=== PATIENT | male | born 1960 | race Caucasian/White ===

== ENCOUNTER → 2018-11-27 | Outpatient (CLI) | payer BC ==
--- NOTE | 2018-11-27 09:47 | XR ---
EXAMINATION TYPE: XR shoulder complete RT DATE OF EXAM: 11/27/2018 CLINICAL HISTORY: Anterior superior shoulder pain for 3 to 4 weeks with no known injury TECHNIQUE: Three views of the right shoulder are obtained. COMPARISON: None. FINDINGS: There is no acute fracture/dislocation evident in the right shoulder. The acromioclavicul ar and glenohumeral joint spaces appear aligned however there is mild acromioclavicular arthropathy n oted with small marginal osteophytes The visualized ribs are intact and unremarkable. IMPRESSION: There is no acute fracture or dislocation in the right shoulder. Mild right acromioclavi cular arthropathy.
== END | disposition home or self-care (01) ==
LOC: RADXRYALE 09:11
PROVIDERS: ATTEND Physician Assistant Medical
DX: M19.011 Primary osteoarthritis, right shoulder (principal)

== ENCOUNTER 2019-10-08 18:25 | Inpatient (IN) | payer BC ==
[2019-10-08] MEDS ORDERED: NITROGLYCERIN OINT 1 INCH/GM PACKET TOPICAL STA (18:42)
--- NOTE | 2019-10-08 18:45 | ED ---
General Adult HPI - General Chief complaint: Chest Pain Stated complaint: Chest Pressure Time Seen by Provider: 10/08/19 18:30 Source: patient, RN notes reviewed, old records reviewed Limitations: no limitations - History of Present Illness Initial comments: This is a 59-year-old male who presents emergency Department with a past medical history significant for hypertension high cholesterol and a family history of heart disease in his father who is 51 years first heart attack. Patient comes in today because it 5 minutes of chest pressure in the center of his chest which was pretty significant according to him and he became very diaphoretic to the point where he sweated through his shirt. Patient states that about 5 minutes the symptoms resolved. Patient denies any radiation of the pain. Patient denies any significant shortness of breath. Patient denies any nausea. Patient states she is currently pain-free. Patient denies any recent fever chills or cough. Patient states he wasn't working outside. Patient denies any abdominal pain patient denies any vomiting or diarrhea. Patient denies any lightheadedness or dizziness - Related Data Home Medications Medication Instructions Recorded Confirmed Simvastatin [Zocor] 40 mg PO HS 06/16/15 06/16/15 lisinopriL [Zestril] 2.5 mg PO HS 06/16/15 06/16/15 Allergies Allergy/AdvReac Type Severity Reaction Status Date / Time No Known Allergies Allergy Verified 06/16/15 08:26 Review of Systems ROS Statement: Those systems with pertinent positive or pertinent negative responses have been documented in the HPI. ROS Other: All systems not noted in ROS Statement are negative. Past Medical History Past Medical History: Hyperlipidemia, Hypertension History of Any Multi-Drug Resistant Organisms: None Reported Additional Past Surgical History / Comment(s): NOSE/LIP Past Anesthesia/Blood Transfusion Reactions: No Reported Reaction Past Psychological History: No Psychological Hx Reported Smoking Status: Light tobacco smoker Past Alcohol Use History: Occasional Past Drug Use History: None Reported - Past Family History Mother Family Medical History: No Reported History General Exam - General Exam Comments Initial Comments: GENERAL: Patient is well-developed and well-nourished. Patient is nontoxic and well- hydrated and is in no acute distress. ENT: Neck is soft and supple. No significant lymphadenopathy is noted. Oropharynx is clear. Moist mucous membranes. Neck has full range of motion without eliciting any pain. EYES: The sclera were anicteric and conjunctiva were pink and moist. Extraocular movements were intact and pupils were equal round and reactive to light. Eyelids were unremarkable. PULMONARY: Unlabored respirations. Good breath sounds bilaterally. No audible rales rhonchi or wheezing was noted. CARDIOVASCULAR: There is a regular rate and rhythm without any murmurs gallops or rubs. ABDOMEN: Soft and nontender with normal bowel sounds. No palpable organomegaly was noted. There is no palpable pulsatile mass. SKIN: Skin is clear with no lesions or rashes and otherwise unremarkable. NEUROLOGIC: Patient is alert and oriented x3. Cranial nerves II through XII are grossly intact. Motor and sensory are also intact. Normal speech, volume and content. Symmetrical smile. MUSCULOSKELETAL: Normal extremities with adequate strength and full range of motion. No lower extremity swelling or edema. No calf tenderness. LYMPHATICS: No significant lymphadenopathy is noted PSYCHIATRIC: Normal psychiatric evaluation. Limitations: no limitations Course Vital Signs 10/08/19 18:27 Temperature 98.1 F Pulse Rate 70 Respiratory 16 Rate Blood Pressure 123/81 O2 Sat by Pulse 97 Oximetry Medical Decision Making - Medical Decision Making EKG shows sinus rhythm with occasional PVC at a rate of 71 bpm MO interval is 208 QRS is under QT intervals 402 QTC is 436. Patient's EKG shows no ST segment elevation or depression Chest x-ray shows no acute abnormality. Patient's troponin was elevated so started the patient on heparin. I admitted the patient wrote admitting orders I consult cardiology and I spoke with cardiology as well. I spoke with Dr. Marcos he was okay was start heparin. I continued heparin and aspirin Nitropaste on the floor. I also gave the patient a beta salo. - Lab Data Result diagrams: 10/08/19 18:45 10/08/19 18:45 Lab Results 10/08/19 10/08/19 10/08/19 Range/Units 18:45 18:45 18:45 WBC 6.6 (3.8-10.6) k/uL RBC 4.86 (4.30-5.90) m/uL Hgb 15.4 (13.0-17.5) gm/dL Hct 46.0 (39.0-53.0) % MCV 94.6 (80.0-100.0) fL MCH 31.6 (25.0-35.0) pg MCHC 33.4 (31.0-37.0) g/dL RDW 12.7 (11.5-15.5) % Plt Count 254 (150-450) k/uL Neutrophils % 63 % Lymphocytes % 25 % Monocytes % 6 % Eosinophils % 4 % Basophils % 0 % Neutrophils # 4.1 (1.3-7.7) k/uL Lymphocytes # 1.6 (1.0-4.8) k/uL Monocytes # 0.4 (0-1.0) k/uL Eosinophils # 0.2 (0-0.7) k/uL Basophils # 0.0 (0-0.2) k/uL PT 9.9 (9.0-12.0) sec INR 0.9 (<1.2) APTT 25.8 (22.0-30.0) sec Sodium 137 (137-145) mmol/L Potassium 3.9 (3.5-5.1) mmol/L Chloride 102 (98-107) mmol/L Carbon Dioxide 26 (22-30) mmol/L Anion Gap 9 mmol/L BUN 14 (9-20) mg/dL Creatinine 0.67 (0.66-1.25) mg/dL Est GFR (CKD-EPI)AfAm >90 (>60 ml/min/1.73 sqM) Est GFR (CKD-EPI)NonAf >90 (>60 ml/min/1.73 sqM) Glucose 89 (74-99) mg/dL Calcium 9.3 (8.4-10.2) mg/dL Magnesium 2.1 (1.6-2.3) mg/dL Total Bilirubin 0.3 (0.2-1.3) mg/dL AST 35 (17-59) U/L ALT 39 (4-49) U/L Alkaline Phosphatase 63 (38-126) U/L Troponin I (0.000-0.034) ng/mL Total Protein 6.7 (6.3-8.2) g/dL Albumin 4.4 (3.5-5.0) g/dL 10/08/19 Range/Units 18:45 WBC (3.8-10.6) k/uL RBC (4.30-5.90) m/uL Hgb (13.0-17.5) gm/dL Hct (39.0-53.0) % MCV (80.0-100.0) fL MCH (25.0-35.0) pg MCHC (31.0-37.0) g/dL RDW (11.5-15.5) % Plt Count (150-450) k/uL Neutrophils % % Lymphocytes % % Monocytes % % Eosinophils % % Basophils % % Neutrophils # (1.3-7.7) k/uL Lymphocytes # (1.0-4.8) k/uL Monocytes # (0-1.0) k/uL Eosinophils # (0-0.7) k/uL Basophils # (0-0.2) k/uL PT (9.0-12.0) sec INR (<1.2) APTT (22.0-30.0) sec Sodium (137-145) mmol/L Potassium (3.5-5.1) mmol/L Chloride (98-107) mmol/L Carbon Dioxide (22-30) mmol/L Anion Gap mmol/L BUN (9-20) mg/dL Creatinine (0.66-1.25) mg/dL Est GFR (CKD-EPI)AfAm (>60 ml/min/1.73 sqM) Est GFR (CKD-EPI)NonAf (>60 ml/min/1.73 sqM) Glucose (74-99) mg/dL Calcium (8.4-10.2) mg/dL Magnesium (1.6-2.3) mg/dL Total Bilirubin (0.2-1.3) mg/dL AST (17-59) U/L ALT (4-49) U/L Alkaline Phosphatase (38-126) U/L Troponin I 0.131 H* (0.000-0.034) ng/mL Total Protein (6.3-8.2) g/dL Albumin (3.5-5.0) g/dL Critical Care Time Critical Care Time: Yes Total Critical Care Time: 35 Disposition Clinical Impression: Non-STEMI (non-ST elevated myocardial infarction) Disposition: ADMITTED IP TO THIS HOSP Referrals: Jim Huynh DO [Primary Care Provider] - 1-2 days Time of Disposition: 19:26
[2019-10-08 18:51] LABS: Basophils % (A) 0 %; Eosinophils # (A) 0.2 k/uL (0-0.7); Eosinophils % (A) 4 %; HGB 15.4 gm/dL (13.0-17.5); Lymphocytes # (A) 1.6 k/uL (1.0-4.8); Lymphocytes % (A) 25 %; MCH 31.6 pg (25.0-35.0); MCHC 33.4 g/dL (31.0-37.0); MCV 94.6 fL (80.0-100.0); Mean Platelet Volume 7.5; Monocytes # (A) 0.4 k/uL (0-1.0); Monocytes % (A) 6 %; Neutrophils # (A) 4.1 k/uL (1.3-7.7); Neutrophils % (A) 63 %; Platelet Count 254 k/uL (150-450); RBC 4.86 m/uL (4.30-5.90); RDW 12.7 % (11.5-15.5); WBC 6.6 k/uL (3.8-10.6)
[2019-10-08 18:59] LABS: ALT 39 U/L (4-49); AST 35 U/L (17-59); African American GFR (CKD) >90 (>60 ml/min/1.73 sqM); Albumin 4.4 g/dL (3.5-5.0); Alkaline Phosphatase 63 U/L (38-126); Anion Gap 9 mmol/L; Blood Urea Nitrogen 14 mg/dL (9-20); Calcium 9.3 mg/dL (8.4-10.2); Carbon Dioxide 26 mmol/L (22-30); Chloride 102 mmol/L (98-107); Glucose 89 mg/dL (74-99); Magnesium 2.1 mg/dL (1.6-2.3); Non-African American GFR(CKD) >90 (>60 ml/min/1.73 sqM); Potassium 3.9 mmol/L (3.5-5.1); Sodium 137 mmol/L (137-145); Total Bilirubin 0.3 mg/dL (0.2-1.3); Total Protein 6.7 g/dL (6.3-8.2)
--- NOTE | 2019-10-08 19:02 | XR ---
EXAMINATION TYPE: XR chest 2V DATE OF EXAM: 10/08/2019 COMPARISON: NONE HISTORY: Chest pain TECHNIQUE: 2 views FINDINGS: Heart and mediastinum are normal. Lungs are clear. Diaphragm is normal. Bony thorax appears normal. IMPRESSION: Normal chest.
[2019-10-08 19:03] LABS: INR 0.9 (<1.2); Partial Thromboplastin Time 25.8 sec (22.0-30.0); Prothrombin Time 9.9 sec (9.0-12.0)
[2019-10-08] MEDS ORDERED: HEPARIN SOD,PORK IN 0.45% NACL 25,000 UNIT in 0.45% NACL 1 250ML.BAG IV SCH (19:15)
[2019-10-08] MEDS ORDERED: HEPARIN SODIUM,PORCINE 5,000 UNIT/ML 1 ML VIAL IV ONE (19:15)
[2019-10-08] MEDS ORDERED: NITROGLYCERIN SL TABS 0.4 MG TAB SUBLINGUAL PRN (19:26)
[2019-10-08] MEDS: METOPROLOL TARTRATE 25 MG TAB PO SCH (21:16)
[2019-10-08] MEDS ORDERED: ATORVASTATIN 40 MG TAB PO SCH (21:30)
[2019-10-08] MEDS: NITROGLYCERIN OINT 1 INCH/GM PACKET TOPICAL SCH (23:36)
[2019-10-09] MEDS ORDERED: HEPARIN SODIUM,PORCINE 5,000 UNIT/ML 1 ML VIAL IV PRN (01:48)
[2019-10-09] MEDS ORDERED: ACETAMINOPHEN TAB 325 MG TAB PO PRN (04:37)
[2019-10-09] MEDS: NITROGLYCERIN OINT 1 INCH/GM PACKET TOPICAL SCH ×3 (06:07→17:14)
[2019-10-09] MEDS: METOPROLOL TARTRATE 25 MG TAB PO SCH (07:53)
[2019-10-09 08:01] LABS: Cholesterol 128 mg/dL (<200); HDL Cholesterol 49 mg/dL (40-60); LDL Cholesterol,Calculated 56 mg/dL (0-99); Triglycerides 116 mg/dL (<150)
[2019-10-09] MEDS ORDERED: ASPIRIN 325 MG TAB PO SCH (09:00)
[2019-10-09] MEDS ORDERED: SODIUM CHLORIDE 0.9% 1,000 ML in EMPTY BAG 1 BAG IV ONE (09:42)
[2019-10-09] MEDS ORDERED: ATORVASTATIN 80 MG TAB PO STA (09:42)
[2019-10-09] MEDS ORDERED: IV FLUID CONTINUATION 500 ML IV ONE (10:15)
[2019-10-09] MEDS ORDERED: LIDOCAINE 1% INJ 10MG/ML (20 ML MDV) ONE (10:17)
[2019-10-09] MEDS ORDERED: VERAPAMIL 2.5 MG/ML 2 ML AMP ONE (10:21)
[2019-10-09 10:25] VITALS: TEMP 98
[2019-10-09] MEDS ORDERED: MIDAZOLAM 2 MG/2 ML VIAL IV ONE (10:35)
[2019-10-09] MEDS ORDERED: LIDOCAINE 1% INJ 10MG/ML (20 ML MDV) SQ ONE (10:36)
[2019-10-09] MEDS ORDERED: HEPARIN SODIUM 1,000 UN/ML (10ML VL) ONE (10:37)
[2019-10-09] MEDS: VERAPAMIL SYRINGE (5 MG/10 ML) INTRAARTER ONE ×2 (10:38→11:04)
[2019-10-09] MEDS ORDERED: fentaNYL (PF) 50 MCG/ML 2 ML AMP ONE (10:38)
[2019-10-09] MEDS ORDERED: HEPARIN SODIUM 1,000 UN/ML (10ML VL) IV ONE (10:40)
[2019-10-09] MEDS ORDERED: fentaNYL (PF) 50 MCG/ML 2 ML AMP IV ONE (10:44)
[2019-10-09] MEDS ORDERED: NITROGLYCERIN 1000MCG/10ML SYRINGE INTRACORON ONE ×2 (10:51→10:55)
[2019-10-09] MEDS ORDERED: niCARdipine 25 MG/10 ML VIAL ONE (10:56)
[2019-10-09] MEDS ORDERED: niCARdipine Syringe (1,000 mcg/10 mL) INTRACORON ONE (10:58)
[2019-10-09] MEDS ORDERED: IOPAMIDOL-370 100ML BTL INJ ONE ×2 (11:02→11:03)
[2019-10-09] MEDS ORDERED: SODIUM CHLORIDE 0.9% 1,000 ML IV ONE (11:04)
[2019-10-09] MEDS ORDERED: SODIUM CHLORIDE 0.9% 1,000 ML IV SCH (11:30)
[2019-10-09 11:34] VITALS: RESP 19
--- NOTE | 2019-10-09 11:52 | ECHOF ---
Referral Reason:Non-STEMI MEASUREMENTS -------- HEIGHT: 182.9 cm WEIGHT: 104.8 kg BP: RVIDd: 3.5 cm (< 3.3) IVSd: 1.2 cm (0.6 - 1.1) LVIDd: 5.2 cm (3.9 - 5.3) LVPWd: 1.2 cm (0.6 - 1.1) IVSs: 1.6 cm LVIDs: 3.0 cm LVPWs: 1.6 cm LA Diam: 4.2 cm (2.7 - 3.8) LAESV Index (A-L): 32.89 ml/m Ao Diam: 2.8 cm (2.0 - 3.7) AV Cusp: 1.9 cm (1.5 - 2.6) MV EXCURSION: 17.570 mm (> 18.000) MV EF SLOPE: 76 mm/s (70 - 150) EPSS: 0.7 cm MV E Marlo: 0.57 m/s MV DecT: 136 ms MV A Marlo: 0.64 m/s MV E/A Ratio: 0.90 RAP: 5.00 mmHg RVSP: 26.30 mmHg FINDINGS -------- Sinus rhythm. This was a technically good study. The left ventricular size is normal. There is mild concentric left ventricular hypertrophy. Overa ll left ventricular systolic function is mildly impaired with, an EF between 45 - 50 %. The right ventricle is normal in size. The left atrium is mildly dilated. LA is midly dilated 29-33ml/m2. The right atrial size is normal. Trace to mild aortic regurgitation. Mild mitral regurgitation is present. Trace tricuspid regurgitation present. Right ventricular systolic pressure is normal at < 35 mmHg. There is no pulmonic regurgitation present. The aortic root size is normal. There is no pericardial effusion. CONCLUSIONS -------- 1. Sinus rhythm. 2. This was a technically good study. 3. The left ventricular size is normal. 4. There is mild concentric left ventricular hypertrophy. 5. Overall left ventricular systolic function is mildly impaired with, an EF between 45 - 50 %. 6. The right ventricle is normal in size. 7. The left atrium is mildly dilated. 8. LA is midly dilated 29-33ml/m2. 9. Trace to mild aortic regurgitation. 10. Mild mitral regurgitation is present. 11. Trace tricuspid regurgitation present. 12. Right ventricular systolic pressure is normal at < 35 mmHg. REHABILITATION SERVICES DIRECTOR: Clarice Chandler RDCS
--- NOTE | 2019-10-09 12:37 | P.CRDCN ---
History of Present Illness History of present illness: This is Ngozi Thorpe PA-C dictating a consult on this patient The patient was interviewed and examined by me as well as by Dr. Zhao Case discussed with Dr. Zhao and he agrees with the plan of care HPI Patient is a 59-year-old male with a history significant for hypertension and dyslipidemia, smoker, who presented with complaints of chest discomfort. He states he was outside loading something into his truck he experienced a sudden onset of pressure across his chest. It was nonradiating. He denied any shortness of breath. He states he broke out into a sweat. The symptoms lasted for about 5 minutes. No dizziness or palpitations. No syncope. He went into the house and sat down and the symptoms resolved. He has never had symptoms like this before. His daughter urged him to come into the emergency department for evaluation. Upon arrival to the emergency department vital signs are stable. EKG shows sinus mechanism with PVCs, nonspecific ST segment changes inferiorly. Chest x-ray did not show any acute process. Labs are significant for abnormal troponin, 0.148, 0.244, 0.131 . Patient seen and examined resting in bed. Currently denies any symptoms. No further episodes of chest pressure. No shortness of breath, nausea, diaphoresis. Patient denies any history of CAD He has seen a travel money advisor about 20 years ago and had a stress test at that time was normal He is a current smoker, smokes about 3 cigarettes a week, previously smoked half pack per day Drinks alcohol socially Denies history of diabetes ROS: No fevers, chills or rigors, no cough, phlegm or expectoration, no nausea, vomiting or diarrhea, no hematuria, dysuria, no musculoskeletal complaints, no strokes or seizures, no skin lesions. EXAMINATION: Patient is afebrile, pulse in the 50s, respirations 18, blood pressure 121/81, oxygen saturation 97% on room air Patient seen and examined resting in bed, in no acute distress Lungs are clear to auscultation bilaterally, no wheezing rhonchi or crackles Heart is regular, normal S1-S2, no murmurs audible No JVD No edema Abdomen soft nontender to palpation REVIEW OF LABS, ECG & MEDICAL DATA WBC 6.6, hemoglobin 15.4, platelets 240, potassium 3.9, creatinine 0.67, BUN 14 Troponin 0.148, 0.244, 0.131 LDL 56 Echocardiogram shows EF mild reduced at 45-50% IMPRESSION / ASSESSMENT: #1 symptoms of chest pressure, abnormal troponin, likely non-Q-wave [place] #2 hypertension #3 dyslipidemia #4 current smoker #5. Mild cardiomyopathy, EF 45-50% PLAN: Continue heparin, aspirin, beta blockers, and statins Coronary angiogram today Discussed the indications, details of the procedure and risks with the patient and he agrees to proceed Further management thereafter Past Medical History Past Medical History: Hyperlipidemia, Hypertension History of Any Multi-Drug Resistant Organisms: None Reported Past Surgical History: Orthopedic Surgery Additional Past Surgical History / Comment(s): NOSE/LIP Past Anesthesia/Blood Transfusion Reactions: No Reported Reaction Past Psychological History: No Psychological Hx Reported Smoking Status: Light tobacco smoker Past Alcohol Use History: Occasional Additional Past Alcohol Use History / Comment(s): HAS SMOKED ON AND OFF SINCE , ABOUT 6 CIGARETTES A DAY Past Drug Use History: None Reported - Past Family History Mother Family Medical History: No Reported History Medications and Allergies Home Medications Medication Instructions Recorded Confirmed Type Aspirin EC [Ecotrin Low Dose] 81 mg PO HS 10/08/19 10/08/19 History Ergocalciferol (Vitamin D2) 50,000 unit PO MO 10/08/19 10/08/19 History [Drisdol] Lisinopril-Hctz 20-25 mg 1 tab PO HS 10/08/19 10/08/19 History [Zestoretic 20-25] Rosuvastatin Calcium [Crestor] 40 mg PO HS 10/08/19 10/08/19 History Allergies Allergy/AdvReac Type Severity Reaction Status Date / Time No Known Allergies Allergy Verified 10/08/19 19:54 Physical Exam Vitals: Vital Signs Temp Pulse Pulse Resp BP BP Pulse Ox 10/09/19 12:15 118/78 10/09/19 12:00 59 L 18 121/81 97 10/09/19 11:45 128/84 10/09/19 11:30 57 L 19 118/87 95 10/09/19 10:45 12 96 10/09/19 10:30 14 96 10/09/19 08:00 98 F 65 18 114/82 96 10/09/19 04:00 98.5 F 59 L 18 112/72 98 10/09/19 00:00 98.1 F 71 20 120/66 94 L 10/08/19 20:30 98.7 F 74 18 139/63 98 10/08/19 20:00 74 18 10/08/19 19:48 64 18 117/56 97 10/08/19 18:27 98.1 F 70 16 123/81 97 Intake and Output 10/08/19 10/09/19 10/09/19 22:59 06:59 14:59 Intake Total 63.333 50 Output Total 525 500 Balance -461.667 -450 Intake: IV 50 Intake, IV Titration 63.333 Amount Heparin Sod,Pork in 0.45% 63.333 NaCl 25,000 unit In 0.45 % NaCl 1 250ml.bag @ 9. 544 UNITS/KG/HR 10 mls/hr IV .Q24H [facility] Rx#: [id number] Output: Urine 525 500 Other: Voiding Method Toilet Toilet Toilet Urinal # Voids 2 Weight 104.78 kg 109.5 kg Results 10/08/19 18:45 10/08/19 18:45 Cardiac Enzymes 10/08/19 10/08/19 10/08/19 Range/Units 18:45 18:45 21:53 AST 35 (17-59) U/L Troponin I 0.131 H* 0.244 H* (0.000-0.034) ng/mL 10/09/19 Range/Units 00:47 AST (17-59) U/L Troponin I 0.148 H* (0.000-0.034) ng/mL Coagulation 10/08/19 10/09/19 10/09/19 Range/Units 18:45 00:47 06:43 PT 9.9 (9.0-12.0) sec APTT 25.8 34.6 H 63.5 H (22.0-30.0) sec Lipids 10/09/19 Range/Units 06:43 Triglycerides 116 (<150) mg/dL Cholesterol 128 (<200) mg/dL HDL Cholesterol 49 (40-60) mg/dL CBC 10/08/19 Range/Units 18:45 WBC 6.6 (3.8-10.6) k/uL RBC 4.86 (4.30-5.90) m/uL Hgb 15.4 (13.0-17.5) gm/dL Hct 46.0 (39.0-53.0) % Plt Count 254 (150-450) k/uL Comprehensive Metabolic Panel 10/08/19 Range/Units 18:45 Sodium 137 (137-145) mmol/L Potassium 3.9 (3.5-5.1) mmol/L Chloride 102 (98-107) mmol/L Carbon Dioxide 26 (22-30) mmol/L BUN 14 (9-20) mg/dL Creatinine 0.67 (0.66-1.25) mg/dL Glucose 89 (74-99) mg/dL Calcium 9.3 (8.4-10.2) mg/dL AST 35 (17-59) U/L ALT 39 (4-49) U/L Alkaline Phosphatase 63 (38-126) U/L Total Protein 6.7 (6.3-8.2) g/dL Albumin 4.4 (3.5-5.0) g/dL Current Medications Generic Name Dose Route Start Last Admin Trade Name Freq PRN Reason Stop Dose Admin Acetaminophen 650 mg 10/09/19 04:37 10/09/19 04:46 Tylenol Tab PO 650 mg Q6HR PRN Administration Fever and/ or Pain Aspirin 325 mg 10/09/19 09:00 10/09/19 07:53 Aspirin PO 325 mg DAILY [facility] Administration Atorvastatin Calcium 80 mg 10/09/19 21:00 Lipitor PO HS [facility] Lisinopril/HCTZ 1 each 10/09/19 21:00 Zestoretic 20-25 PO HS [facility] Heparin Sodium (Porcine) 0 unit 10/09/19 01:48 10/09/19 02:01 Heparin IV 4,000 unit PER PROTOCOL PRN Administration Low PTT Protocol Heparin Sodium/Sodium Chloride 250 mls @ 10 mls/hr 10/08/19 19:15 10/09/19 02:03 25,000 unit/ Sodium Chloride IV 12.54 units/kg/hr .Q24H [facility] 13.139 mls/hr Titration Protocol 9.544 UNITS/KG/HR Sodium Chloride 1,000 mls @ 100 mls/hr 10/09/19 11:30 Saline 0.9% IV .Q10H [facility] Metoprolol Tartrate 25 mg 10/08/19 21:00 10/09/19 07:53 Lopressor PO 25 mg BID [facility] Administration Nitroglycerin 0.4 mg 10/08/19 19:26 Nitrostat SUBLINGUAL Q5M PRN Chest Pain Nitroglycerin 1 inch 10/09/19 00:00 10/09/19 06:07 Nitro-Bid Oint TOPICAL Not Given Q6HR [facility] Intake and Output 10/08/19 10/09/19 10/09/19 22:59 06:59 14:59 Intake Total 63.333 50 Output Total 525 500 Balance -461.667 -450 Intake: IV 50 Intake, IV Titration 63.333 Amount Heparin Sod,Pork in 0.45% 63.333 NaCl 25,000 unit In 0.45 % NaCl 1 250ml.bag @ 9. 544 UNITS/KG/HR 10 mls/hr IV .Q24H [facility] Rx#: [id number] Output: Urine 525 500 Other: Voiding Method Toilet Toilet Toilet Urinal # Voids 2 Weight 104.78 kg 109.5 kg 10/08/19 18:45 10/08/19 18:45
--- NOTE | 2019-10-09 13:27 | CC ---
CARDIAC CATHETERIZATION REPORT DATE OF SERVICE: 10/09/2019 PROCEDURE: Left heart catheterization and coronary angiography. PERFORMED BY: Dr. Angelika Rasmussen. Moderate conscious sedation time was 31 minutes. Patient was administered Versed and fentanyl. Oxygen saturation, EKG were monitored closely. CLINICAL INFORMATION: Mr. Luke Antonio is a 59-year-old gentleman, a smoker, with hypertension and hypercholesterolemia, came into the hospital with chest pain and troponin elevation suggestive of non-ST elevation MD without significant EKG changes. He was advised cardiac catheterization after evaluation by Dr. Zhao. I saw the patient in the laboratory manager. Talked about procedure, risks, benefits, options and then proceeded with the procedure. He understood all details and wished to proceed. PROCEDURE NOTE: Under local anesthesia and strict aseptic precautions, a 6-Sudanese introducer was placed in the right radial artery. Using a JL3.5 and JR4.0 catheters, I performed coronary angiography and the same right catheter was used to check LV pressures. LV gram was not performed. I needed a Glidewire to get across because of tortuosity in the brachial system. Following the procedure, a TR band was applied as per protocol and good hemostasis was secured. Saturation of the fingers of the right hand were 92%. CARDIAC CATH FINDINGS: Left end-diastolic pressure was about 30 mmHg without any gradient across the aortic valve. CORONARY ANGIOGRAPHY FINDINGS: RIGHT CORONARY ARTERY: This is a nondominant vessel, large in caliber, has some spasm proximally and a lesion of about 35% with spasm that was relieved with nitroglycerin administration. No significant disease. It is a nondominant vessel, but large in caliber. LEFT MAIN CORONARY ARTERY: This is a short patent vessel, large in caliber. No significant disease. Bifurcates into LAD and circumflex. LEFT ANTERIOR DESCENDING CORONARY ARTERY: This vessel is of good caliber, gives off 2 diagonal branches, a large septal branches runs all the way to the apex supplying a sizable amount of myocardium. There are minor irregularities but no significant disease in the entire LAD system. The flow is somehow somewhat sluggish. Patient is slightly bradycardic also. No significant disease in the LAD system. The first diagonal has about a 30% narrowing at the ostium. The entire caliber of the LAD, especially the proximal aspect is quite large. LEFT POSTERIOR CIRCUMFLEX CORONARY ARTERY: Technically, this is a very dominant vessel, large in caliber, gives off a first obtuse marginal, free of significant disease that bifurcates into 2 branches and then the vessel in the midportion divides into 2 branches. The PDA and PLV and also small secondary branches. There are minor irregularities but no more than 30%-35% narrowing in the distal branch of the dominant circumflex. LEFT VENTRICULOGRAM: This was not performed. FINAL IMPRESSION: This patient has a left dominant system. Normal filling pressures. No gradient across the aortic valve. There is: however, no significant obstructive CAD. The flow is sluggish in the vessels. There may be underlying cardiomyopathy process which should be ascertained. There is no significant obstructive CAD. There is a 30% to 35% narrowing in the circumflex system in the distal branches. There is no evidence to suggest any significant obstructive CAD. Left dominant system, normal filling pressures without any gradient across the aortic valve. RECOMMENDATION: I am recommending continued medical therapy, but I will obtain a CT angio to rule out any pulmonary embolism or any aortic pathology. Discussed my thoughts in detail with the patient. Elevated troponin and trend of the troponin does suggest non ST elevation MD, but we are not seeing any obstructive CAD at this time to explain this process. This was explained to the patient and I also will speak to his . MMODL / IJN: [id number] /
--- NOTE | 2019-10-09 14:33 | P.HPIM ---
History of Present Illness This is a pleasant 59 years old male with past medical history of hypertension, hyperlipidemia. Presents because of chest pressure in the left chest nonradiating laxatives and twitching on him with nausea and sweating but no dizziness or dyspnea or palpitation. Patient already has been evaluated by fabricator industrial furnace he underwent cardiac cath which was unremarkable for coronary artery disease. Chemical Laboratory Assistant recommended CT of the chest to rule out PE. Patient already got an normal saline and 100 mL per hour. Patient currently is chest pain-free, no dyspnea, no other complaints Patient smokes cigars however he could not clarify for home which he smokes. He denies drinking alcohol or illicit drugs Vitals stable. Labs are unremarkable including CBC, BMP, INR, liver enzymes. Troponin is elevated at 0.13, 0.24 and 0.14 chest x-ray: No acute process. In the emergency room patient was started on heparin drip, and aspirin Review of Systems CONSTITUTIONAL: No fever, no malaise, no fatigue. HEENT: No recent visual problems or hearing problems. Denied any sore throat. CARDIOVASCULAR: No orthopnea, PND, no palpitations, no syncope. PULMONARY: No shortness of breath, no cough, no hemoptysis. GASTROINTESTINAL: No diarrhea, no nausea, no vomiting, no abdominal pain. Normoactive bowel sounds. NEUROLOGICAL: No headaches, no weakness, no numbness. HEMATOLOGICAL: Denies any bleeding or petechiae. GENITOURINARY: Denies any burning micturition, frequency, or urgency. MUSCULOSKELETAL/RHEUMATOLOGICAL: Denies any joint pain, swelling, or any muscle pain. ENDOCRINE: Denies any polyuria or polydipsia. Past Medical History Past Medical History: Hyperlipidemia, Hypertension History of Any Multi-Drug Resistant Organisms: None Reported Past Surgical History: Orthopedic Surgery Additional Past Surgical History / Comment(s): NOSE/LIP Past Anesthesia/Blood Transfusion Reactions: No Reported Reaction Past Psychological History: No Psychological Hx Reported Smoking Status: Light tobacco smoker Past Alcohol Use History: Occasional Additional Past Alcohol Use History / Comment(s): HAS SMOKED ON AND OFF SINCE 20'S, ABOUT 6 CIGARETTES A DAY Past Drug Use History: None Reported - Past Family History Mother Family Medical History: No Reported History Medications and Allergies Home Medications Medication Instructions Recorded Confirmed Type Aspirin EC [Ecotrin Low Dose] 81 mg PO HS 10/08/19 10/08/19 History Ergocalciferol (Vitamin D2) 50,000 unit PO MO 10/08/19 10/08/19 History [Drisdol] Lisinopril-Hctz 20-25 mg 1 tab PO HS 10/08/19 10/08/19 History [Zestoretic 20-25] Rosuvastatin Calcium [Crestor] 40 mg PO HS 10/08/19 10/08/19 History Allergies Allergy/AdvReac Type Severity Reaction Status Date / Time No Known Allergies Allergy Verified 10/08/19 19:54 Physical Exam Vitals: Vital Signs Temp Pulse Pulse Resp BP BP Pulse Ox 10/09/19 13:15 127/78 10/09/19 12:45 127/74 10/09/19 12:15 118/78 10/09/19 12:00 59 L 18 121/81 97 10/09/19 11:45 128/84 10/09/19 11:30 57 L 19 118/87 95 10/09/19 10:45 12 96 10/09/19 10:30 14 96 10/09/19 08:00 98 F 65 18 114/82 96 10/09/19 04:00 98.5 F 59 L 18 112/72 98 10/09/19 00:00 98.1 F 71 20 120/66 94 L 10/08/19 20:30 98.7 F 74 18 139/63 98 10/08/19 20:00 74 18 10/08/19 19:48 64 18 117/56 97 10/08/19 18:27 98.1 F 70 16 123/81 97 Intake and Output 10/08/19 10/09/19 10/09/19 22:59 06:59 14:59 Intake Total 63.333 50 Output Total 525 500 Balance -461.667 -450 Intake: IV 50 Intake, IV Titration 63.333 Amount Heparin Sod,Pork in 0.45% 63.333 NaCl 25,000 unit In 0.45 % NaCl 1 250ml.bag @ 9. 544 UNITS/KG/HR 10 mls/hr IV .Q24H [facility] Rx#: [id number] Output: Urine 525 500 Other: Voiding Method Toilet Toilet Toilet Urinal # Voids 2 Weight 104.78 kg 109.5 kg GENERAL: The patient is alert and oriented x3, not in any acute distress. Well developed, well nourished. HEENT: Pupils are round and equally reacting to light. EOMI. No scleral icterus. No conjunctival pallor. Normocephalic, atraumatic. No pharyngeal erythema. No thyromegaly. CARDIOVASCULAR: S1 and S2 present. No murmurs, rubs, or gallops. PULMONARY: Chest is clear to auscultation, no wheezing or crackles. ABDOMEN: Soft, nontender, nondistended, normoactive bowel sounds. No palpable organomegaly. MUSCULOSKELETAL: No joint swelling or deformity. EXTREMITIES: No cyanosis, clubbing, or pedal edema. NEUROLOGICAL: Gross neurological examination did not reveal any focal deficits. SKIN: No rashes. No petechiae Results CBC & Chem 7: 10/08/19 18:45 10/08/19 18:45 Labs: Abnormal Lab Results - Last 24 Hours (Table) 10/08/19 10/08/19 10/09/19 Range/Units 18:45 21:53 00:47 APTT (22.0-30.0) sec Troponin I 0.131 H* 0.244 H* 0.148 H* (0.000-0.034) ng/mL 10/09/19 10/09/19 Range/Units 00:47 06:43 APTT 34.6 H 63.5 H (22.0-30.0) sec Troponin I (0.000-0.034) ng/mL Thrombosis Risk Factor Assmnt - Choose All That Apply Each Factor Represents 1 point: Age 41-60 years Other Risk Factors: No Other congenital or acquired thrombophilia - If yes, enter type in comment: No Thrombosis Risk Factor Assessment Total Risk Factor Score: 1 Thrombosis Risk Factor Assessment Level: Low Risk Assessment and Plan Assessment: Elevated troponin suspicious for None STEMI, cardiac cath was unremarkable. Chemical Laboratory Assistant recommended CTA to rule out PE Hypertension Hyperlipidemia Nicotine dependence Plan: This is a pleasant 59 years old male who presents with non-STEMI, continue with aspirin. We'll follow-up recommendation by fabricator industrial furnace who recommended CTA of the chest to rule out PE. Continue with IV fluids Labs and medication were reviewed.. Continue same treatment. Continue with symptomatic treatment. Resume home medication. Monitor lytes and vitals. DVT and GI prophylaxis. Further recommendations of the clinical course of the patient DVT prophylaxis: Subcutaneous heparin GI Prophylaxis: Pepcid Prognosis is guarded
--- NOTE | 2019-10-09 16:56 | CT ---
EXAMINATION TYPE: CT angio chest with contrast and with 3-D reconstruction renderings DATE OF EXAM: 10/09/2019 4:37 PM COMPARISON: Chest radiograph 10/08/2019 HISTORY: SOB CT DLP: 693.5 mGycm Automated exposure control for dose reduction was used. CONTRAST: CTA scan of the thorax is performed with IV Contrast, patient injected with 100 mL of Isovu e 370, pulmonary embolism protocol. Three-D renderings obtained and reviewed. FINDINGS: LUNGS: There is a subpleural 5 mm diameter nodule high in the left upper lobe posteriorly, which can be further characterized with 6 month follow-up chest CT. No other nodules. The lungs are negative fo r acute processes. There is no pleural effusion or pneumothorax seen. The tracheobronchial tree is p atent. MEDIASTINUM: There is satisfactory enhancement of the pulmonary artery and its branches; there is no CT evidence for pulmonary embolism. The aorta is unremarkable. There is no cardiomegaly or pericardia l effusion. OTHER: Multifocal rounded low densities noted within the liver and left kidney, likely simple cysts, which can be proven with ultrasound characterization. IMPRESSION: 1. NEGATIVE FOR PULMONARY EMBOLISM; NO ACUTE PROCESS. 2. INCIDENTAL 5 MM LEFT UPPER LOBE SOFT TISSUE DENSITY PULMONARY NODULE, FOR WHICH SIX-MONTH FOLLOW-U P RECOMMENDED.
[2019-10-09 18:04] VITALS: BP 126/82; PULSE 64
[2019-10-09] MEDS ORDERED: LISINOPRIL-HCTZ 20-25 MG 1 EACH TAB PO SCH (21:00)
[2019-10-09] MEDS ORDERED: HEPARIN SODIUM,PORCINE 5,000 UNIT/ML 1 ML VIAL SQ SCH (21:00)
[2019-10-09] MEDS ORDERED: ATORVASTATIN 80 MG TAB PO SCH (21:00)
== END 2019-10-09 18:40 | disposition home or self-care (01) | DRG 281 ==
LOC: EC 18:25 → 3SCARD 19:26
PROVIDERS: ADMIT Internal Medicine; ATTEND Internal Medicine
PROC: B2111ZZ Fluoroscopy of Multiple Coronary Arteries using Low Osmolar Contrast (ICD-10-PCS; principal; 2019-10-09 10:30)
PROC: 4A023N7 Measurement of Cardiac Sampling and Pressure, Left Heart, Percutaneous Approach (ICD-10-PCS; principal; 2019-10-09 10:30)
DX: I21.4 Non-ST elevation (NSTEMI) myocardial infarction (principal); I42.9 Cardiomyopathy, unspecified; E78.5 Hyperlipidemia, unspecified; E78.00 Pure hypercholesterolemia, unspecified; I10 Essential (primary) hypertension; F17.210 Nicotine dependence, cigarettes, uncomplicated; I49.3 Ventricular premature depolarization; Z11.59 Encounter for screening for other viral diseases; Z98.890 Other specified postprocedural states; Z82.49 Family history of ischemic heart disease and other diseases of the circulatory system
CPT/HCPCS: 36415; 71046; 71275; 80053; 80061; 83735; 84484; 85025; 85379; 85610; 85730; 93005; 93306; 93458; 96365; 96376; 99291

== ENCOUNTER 2019-10-24 23:12 | Observation (INO) | payer BC ==
[2019-10-24] MEDS ORDERED: SODIUM CHLORIDE 0.9% 500 ML 500 ML IV STA (23:27)
[2019-10-24 23:55] LABS: Basophils # (A) 0.1 k/uL (0-0.2); Basophils % (A) 1 %; Eosinophils # (A) 0.3 k/uL (0-0.7); Eosinophils % (A) 3 %; HCT 45.9 % (39.0-53.0); HGB 14.9 gm/dL (13.0-17.5); Lymphocytes # (A) 1.7 k/uL (1.0-4.8); Lymphocytes % (A) 20 %; MCH 30.2 pg (25.0-35.0); MCHC 32.6 g/dL (31.0-37.0); MCV 92.7 fL (80.0-100.0); Mean Platelet Volume 7.2; Monocytes # (A) 0.6 k/uL (0-1.0); Monocytes % (A) 7 %; Neutrophils # (A) 5.8 k/uL (1.3-7.7); Neutrophils % (A) 67 %; Platelet Count 239 k/uL (150-450); RBC 4.95 m/uL (4.30-5.90); RDW 12.8 % (11.5-15.5); WBC 8.7 k/uL (3.8-10.6)
[2019-10-25 00:04] LABS: Partial Thromboplastin Time 27.5 sec (22.0-30.0); Prothrombin Time 10.4 sec (9.0-12.0)
--- NOTE | 2019-10-25 00:09 | XR ---
EXAMINATION TYPE: XR chest 2V DATE OF EXAM: 10/24/2019 COMPARISON: 10/08/2019 HISTORY: Chest pain TECHNIQUE: FINDINGS: Heart and mediastinum are normal. Lungs are clear. Diaphragm is normal. Bony thorax appears normal. There are chest leads. IMPRESSION: Normal chest. No change.
[2019-10-25 00:11] LABS: ALT 43 U/L (4-49); AST 36 U/L (17-59); African American GFR (CKD) >90 (>60 ml/min/1.73 sqM); Albumin 4.3 g/dL (3.5-5.0); Alkaline Phosphatase 79 U/L (38-126); Anion Gap 6 mmol/L; Blood Urea Nitrogen 20 mg/dL (9-20); Calcium 9.2 mg/dL (8.4-10.2); Carbon Dioxide 30 mmol/L (22-30); Chloride 101 mmol/L (98-107); Glucose 106 mg/dL (74-99); Non-African American GFR(CKD) >90 (>60 ml/min/1.73 sqM); Potassium 3.9 mmol/L (3.5-5.1); Sodium 137 mmol/L (137-145); Total Bilirubin 0.4 mg/dL (0.2-1.3); Total Protein 6.5 g/dL (6.3-8.2)
--- NOTE | 2019-10-25 00:15 | ED ---
General Adult HPI - General Source: patient, RN notes reviewed, old records reviewed Mode of arrival: wheelchair Limitations: no limitations <Isaias Pierson - Last Filed: 10/25/19 00:43> <Ronaldo Almonte - Last Filed: 10/26/19 07:57> - General Chief complaint: Chest Pain Stated complaint: Chest Pain Time Seen by Provider: 10/24/19 23:23 - History of Present Illness Initial comments: 59-year-old male patient who had a NSTEMI on 10/07 presents to ED chief complaint of chest pressure. Patient reports that approximately 1 hour prior to presentation he had about 5 minutes of substernal chest pressure which felt like a 15 pound weight on hischest and some diaphoresis. He reports that this was not as serious as his prior episode of chest pressure 2 weeks ago. He states that he took an aspirin 325 mg and a sublingual nitro and is totally asymptomatic. He id denies any acute complaints at this time. Denies any chest pain, sob, n/v/d Systemic: Pt denies fatigue, fever/chills, rash. Pt denies weakness, night s weats, weight loss. Neuro: Pt denies headache, visual disturbances, syncope or pre-syncope. HEENT: Pt denies ocular discharge or irritation, otalgia, rhinorrhea, pharyngitis or notable lymphadenopathy. Cardiopulmonary: Pt denies SOB, heart palpitations, dyspnea on exertion. Abdominal/GI: Pt denies abdominal pain, n/v/d. : Pt denies dysuria, burning w/ urination, frequency/urgency. Denies new onset urinary or bowel incontinence. MSK: Pt denies myalgia, loss of strength or function in extremities. Neuro: Pt denies new onset weakness, paresthesias. (Isaias Pierson) - Related Data Home Medications Medication Instructions Recorded Confirmed Aspirin EC [Ecotrin Low Dose] 81 mg PO HS 10/08/19 10/25/19 Ergocalciferol (Vitamin D2) 50,000 unit PO MO 10/08/19 10/25/19 [Drisdol] Lisinopril-Hctz 20-25 mg 1 tab PO HS 10/08/19 10/25/19 [Zestoretic 20-25] Rosuvastatin Calcium [Crestor] 40 mg PO HS 10/08/19 10/25/19 Ezetimibe [Zetia] 10 mg PO HS 10/25/19 10/25/19 Metoprolol Tartrate [Lopressor] 25 mg PO BID@0600,2030 10/25/19 10/25/19 Previous Rx's Medication Instructions Recorded Nitroglycerin Sl Tabs [Nitrostat] 0.4 mg SUBLINGUAL Q5M PRN #20 tab 10/09/19 Allergies Allergy/AdvReac Type Severity Reaction Status Date / Time No Known Allergies Allergy Verified 10/25/19 10:46 Review of Systems ROS Other: All systems not noted in ROS Statement are negative. <Isaias Pierson - Last Filed: 10/25/19 00:43> ROS Other: All systems not noted in ROS Statement are negative. <Ronaldo Almonte - Last Filed: 10/26/19 07:57> ROS Statement: Those systems with pertinent positive or pertinent negative responses have been documented in the HPI. Past Medical History Past Medical History: Hyperlipidemia, Hypertension History of Any Multi-Drug Resistant Organisms: None Reported Past Surgical History: Orthopedic Surgery Additional Past Surgical History / Comment(s): NOSE/LIP Past Anesthesia/Blood Transfusion Reactions: No Reported Reaction Past Psychological History: No Psychological Hx Reported Smoking Status: Light tobacco smoker Past Alcohol Use History: Occasional Past Drug Use History: None Reported - Past Family History Mother Family Medical History: No Reported History <Isaias Pierson - Last Filed: 10/25/19 00:43> General Exam Limitations: no limitations <Isaias Pierson - Last Filed: 10/25/19 00:43> - General Exam Comments Initial Comments: Constitutional: NAD, AOX3, Pt has pleasant affect. HEENT: NC/AT, trachea midline, neck supple, no lymphadenopathy. External ears appear normal, without discharge. Mucous membranes moist. Eyes PERRLA, EOM intact. There is no scleral icterus. No pallor noted. Cardiopulmonary: RRR, no murmurs, rubs or gallops, no JVD noted. Lungs CTAB in anterior and posterior guillen. No peripheral edema. Abdominal exam: Abdomen soft and non-distended. Abdomen non-tender to palpation in all 4 quadrants. Bowel sounds active in LLQ. No hepatosplenomegaly. No ecchymosis Neuro: CN II-XII grossly intact. No nuchal rigidity. No raccon eyes, no lowe sign, no hemotympanum. No cervical spinal tenderness. MSK: No posterior calf tenderness bilaterally, homans sign negative bilaterally. Posterior tibialis and radial pulse +2 bilaterally. Sensation intact in upper and lower extremities. Full active ROM in upper and lower extremities, 5/5 str egnth. (Isaias Pierson) Course Vital Signs 10/24/19 10/25/19 10/25/19 23:14 00:01 01:01 Temperature 98.1 F Pulse Rate 68 62 61 Respiratory 16 18 16 Rate Blood Pressure 140/78 120/75 136/77 O2 Sat by Pulse 97 95 96 Oximetry 10/25/19 02:01 Temperature 97.8 F Pulse Rate 56 L Respiratory 16 Rate Blood Pressure 116/72 O2 Sat by Pulse 96 Oximetry Medical Decision Making - Lab Data Result diagrams: 10/24/19 23:49 10/24/19 23:49 - EKG Data -: EKG Interpreted by Ma (and Dr. Silver ) <Isaias Pierson - Last Filed: 10/25/19 00:43> - Lab Data Result diagrams: 10/24/19 23:49 10/24/19 23:49 <Ronaldo lAmonte - Last Filed: 10/26/19 07:57> - Medical Decision Making 59-year-old male patient had an STEMI approximately 2 weeks ago from [facility] similar symptoms that 1 hour prior to presentation some substernal chest pressure with diaphoresis lasted about 5 minutes. Resolved after nitro and aspirin. Patient is asymptomatic and these remained asymptomatic. Laboratory investigations are obtained and are unremarkable. Troponin is 0.02. EKG is nonischemic. Patient will be admitted for serial troponins and further evaluation. Case discussed with Dr. Silver. (Isaias Pierson) - Lab Data Lab Results 10/24/19 10/24/19 10/24/19 Range/Units 23:49 23:49 23:49 WBC 8.7 (3.8-10.6) k/uL RBC 4.95 (4.30-5.90) m/uL Hgb 14.9 (13.0-17.5) gm/dL Hct 45.9 (39.0-53.0) % MCV 92.7 (80.0-100.0) fL MCH 30.2 (25.0-35.0) pg MCHC 32.6 (31.0-37.0) g/dL RDW 12.8 (11.5-15.5) % Plt Count 239 (150-450) k/uL Neutrophils % 67 % Lymphocytes % 20 % Monocytes % 7 % Eosinophils % 3 % Basophils % 1 % Neutrophils # 5.8 (1.3-7.7) k/uL Lymphocytes # 1.7 (1.0-4.8) k/uL Monocytes # 0.6 (0-1.0) k/uL Eosinophils # 0.3 (0-0.7) k/uL Basophils # 0.1 (0-0.2) k/uL PT 10.4 (9.0-12.0) sec INR 1.0 (<1.2) APTT 27.5 (22.0-30.0) sec Sodium 137 (137-145) mmol/L Potassium 3.9 (3.5-5.1) mmol/L Chloride 101 (98-107) mmol/L Carbon Dioxide 30 (22-30) mmol/L Anion Gap 6 mmol/L BUN 20 (9-20) mg/dL Creatinine 0.82 (0.66-1.25) mg/dL Est GFR (CKD-EPI)AfAm >90 (>60 ml/min/1.73 sqM) Est GFR (CKD-EPI)NonAf >90 (>60 ml/min/1.73 sqM) Glucose 106 H (74-99) mg/dL Calcium 9.2 (8.4-10.2) mg/dL Magnesium 2.0 (1.6-2.3) mg/dL Total Bilirubin 0.4 (0.2-1.3) mg/dL AST 36 (17-59) U/L ALT 43 (4-49) U/L Alkaline Phosphatase 79 (38-126) U/L Troponin I (0.000-0.034) ng/mL NT-Pro-B Natriuret Pep pg/mL Total Protein 6.5 (6.3-8.2) g/dL Albumin 4.3 (3.5-5.0) g/dL 10/24/19 10/24/19 Range/Units 23:49 23:49 WBC (3.8-10.6) k/uL RBC (4.30-5.90) m/uL Hgb (13.0-17.5) gm/dL Hct (39.0-53.0) % MCV (80.0-100.0) fL MCH (25.0-35.0) pg MCHC (31.0-37.0) g/dL RDW (11.5-15.5) % Plt Count (150-450) k/uL Neutrophils % % Lymphocytes % % Monocytes % % Eosinophils % % Basophils % % Neutrophils # (1.3-7.7) k/uL Lymphocytes # (1.0-4.8) k/uL Monocytes # (0-1.0) k/uL Eosinophils # (0-0.7) k/uL Basophils # (0-0.2) k/uL PT (9.0-12.0) sec INR (<1.2) APTT (22.0-30.0) sec Sodium (137-145) mmol/L Potassium (3.5-5.1) mmol/L Chloride (98-107) mmol/L Carbon Dioxide (22-30) mmol/L Anion Gap mmol/L BUN (9-20) mg/dL Creatinine (0.66-1.25) mg/dL Est GFR (CKD-EPI)AfAm (>60 ml/min/1.73 sqM) Est GFR (CKD-EPI)NonAf (>60 ml/min/1.73 sqM) Glucose (74-99) mg/dL Calcium (8.4-10.2) mg/dL Magnesium (1.6-2.3) mg/dL Total Bilirubin (0.2-1.3) mg/dL AST (17-59) U/L ALT (4-49) U/L Alkaline Phosphatase (38-126) U/L Troponin I 0.023 (0.000-0.034) ng/mL NT-Pro-B Natriuret Pep 78 pg/mL Total Protein (6.3-8.2) g/dL Albumin (3.5-5.0) g/dL - EKG Data EKG Comments: Ventricular rate 64, MA interval 242, QRS 100, QT/QTc 412/425 presents rhythm with first AV block with occasional PVC. Left axis deviation. No concern for acute ischemic this time. (Isaias Pierson) Disposition Is patient prescribed a controlled substance at d/c from ED?: No <Isaias Pierson - Last Filed: 10/25/19 00:43> <Ronaldo Almonte - Last Filed: 10/26/19 07:57> Clinical Impression: Chest pain Disposition: ADMITTED IP TO THIS HOSP Condition: Serious
[2019-10-25] MEDS ORDERED: NITROGLYCERIN SL TABS 0.4 MG TAB SUBLINGUAL PRN ×2 (00:42→13:50)
--- NOTE | 2019-10-25 09:41 | P.CRDCN ---
History of Present Illness Consult date: 10/25/19 Chief complaint: Chest pain History of present illness: This is a pleasant 59-year-old gentleman with significant history of smoking presented to the emergency department complaining of chest discomfort. He just was discharged from the hospital after he was admitted with a chest discomfort and ruled in for acute coronary syndrome. At that point an echocardiogram was performed and revealed mildly impaired LV function was EF around 45%. Sub sequently he underwent a coronary angiogram by Dr. Rasmussen and that revealed mild to moderate nonobstructive coronary artery disease. At that point maximize medical treatment was advised and the patient was discharged home. He was in his usual state of felt to yesterday when he was at home laying on the couch and subsequently started experiencing discomfort in the chest without any radiation to the arms or neck or shoulders and without any associated symptoms of shortness of breath, dizziness, heart racing, or syncope. He did have some sweating with a chest discomfort. The discomfort lasted only for a few minutes but since then he has been chest pain-free. The EKG showed sinus rhythm without any significant ST or T-wave abnormalities. The cardiac enzymes were checked and came in to be slightly abnormal. The patient stated that he stop smoking since he was admitted to the hospital last time. Currently he is under a lot of stress. Past Medical History Past Medical History: Hyperlipidemia, Hypertension History of Any Multi-Drug Resistant Organisms: None Reported Past Surgical History: Orthopedic Surgery Additional Past Surgical History / Comment(s): NOSE/LIP Past Anesthesia/Blood Transfusion Reactions: No Reported Reaction Past Psychological History: No Psychological Hx Reported Smoking Status: Current some day smoker Past Alcohol Use History: Occasional Additional Past Alcohol Use History / Comment(s): HAS SMOKED ON AND OFF SINCE , ABOUT 6 CIGARETTES A DAY Past Drug Use History: None Reported - Past Family History Mother Family Medical History: No Reported History Medications and Allergies Home Medications Medication Instructions Recorded Confirmed Type Aspirin EC [Ecotrin Low Dose] 81 mg PO HS 10/08/19 10/08/19 History Ergocalciferol (Vitamin D2) 50,000 unit PO MO 10/08/19 10/08/19 History [Drisdol] Lisinopril-Hctz 20-25 mg 1 tab PO HS 10/08/19 10/08/19 History [Zestoretic 20-25] Rosuvastatin Calcium [Crestor] 40 mg PO HS 10/08/19 10/08/19 History Metoprolol Tartrate [Lopressor] 25 mg PO BID #60 tab 10/09/19 Rx Nitroglycerin Sl Tabs [Nitrostat] 0.4 mg SUBLINGUAL Q5M PRN #20 tab 10/09/19 Rx Allergies Allergy/AdvReac Type Severity Reaction Status Date / Time No Known Allergies Allergy Verified 10/24/19 23:17 Physical Exam Vitals: Vital Signs Temp Pulse Pulse Resp BP BP Pulse Ox 10/25/19 07:48 97.9 F 52 L 14 125/78 95 10/25/19 02:39 58 L 18 10/25/19 02:19 97.7 F 59 L 18 111/72 98 10/25/19 02:18 95 10/25/19 02:01 97.8 F 56 L 16 116/72 96 10/25/19 01:01 61 16 136/77 96 10/25/19 00:01 62 18 120/75 95 10/24/19 23:14 98.1 F 68 16 140/78 97 Intake and Output 10/24/19 10/25/19 10/25/19 22:59 06:59 14:59 Other: Voiding Method Toilet Toilet # Voids 1 Weight 114.532 kg - Constitutional General appearance: no acute distress - Respiratory Respiratory: bilateral: CTA - Cardiovascular Rhythm: regular Heart sounds: normal: S1, S2 Results 10/24/19 23:49 10/24/19 23:49 Cardiac Enzymes 10/24/19 10/24/19 10/25/19 Range/Units 23:49 23:49 03:03 AST 36 (17-59) U/L Troponin I 0.023 0.059 H* (0.000-0.034) ng/mL 10/25/19 Range/Units 05:50 AST (17-59) U/L Troponin I 0.049 H* (0.000-0.034) ng/mL Coagulation 10/24/19 Range/Units 23:49 PT 10.4 (9.0-12.0) sec APTT 27.5 (22.0-30.0) sec CBC 10/24/19 Range/Units 23:49 WBC 8.7 (3.8-10.6) k/uL RBC 4.95 (4.30-5.90) m/uL Hgb 14.9 (13.0-17.5) gm/dL Hct 45.9 (39.0-53.0) % Plt Count 239 (150-450) k/uL Comprehensive Metabolic Panel 10/24/19 Range/Units 23:49 Sodium 137 (137-145) mmol/L Potassium 3.9 (3.5-5.1) mmol/L Chloride 101 (98-107) mmol/L Carbon Dioxide 30 (22-30) mmol/L BUN 20 (9-20) mg/dL Creatinine 0.82 (0.66-1.25) mg/dL Glucose 106 H (74-99) mg/dL Calcium 9.2 (8.4-10.2) mg/dL AST 36 (17-59) U/L ALT 43 (4-49) U/L Alkaline Phosphatase 79 (38-126) U/L Total Protein 6.5 (6.3-8.2) g/dL Albumin 4.3 (3.5-5.0) g/dL Current Medications Generic Name Dose Route Start Last Admin Trade Name Freq PRN Reason Stop Dose Admin Aspirin 325 mg 10/26/19 09:00 Aspirin PO DAILY [facility] Clopidogrel Bisulfate 75 mg 10/25/19 09:45 Plavix PO DAILY [facility] Isosorbide Mononitrate 30 mg 10/25/19 09:45 Imdur PO DAILY [facility] Nitroglycerin 0.4 mg 10/25/19 00:42 Nitrostat SUBLINGUAL Q5M PRN Chest Pain Intake and Output 10/24/19 10/25/19 10/25/19 22:59 06:59 14:59 Other: Voiding Method Toilet Toilet # Voids 1 Weight 114.532 kg 10/24/19 23:49 10/24/19 23:49 Assessment and Plan Assessment: Assessment #1 chest discomfort #2 significant history of smoking Plan #1 continue the current medical regimen #2 add Plavix to the current medical regimen #3 add oral nitrates the current medical regimen #4 the patient would like to be discharged home.
[2019-10-25] MEDS: CLOPIDOGREL 75 MG TAB PO SCH (10:14)
[2019-10-25] MEDS: ISOSORBIDE MONONITRATE ER 30 MG TAB.ER.24H PO SCH (10:14)
[2019-10-25] MEDS ORDERED: ACETAMINOPHEN TAB 325 MG TAB PO PRN (13:04)
--- NOTE | 2019-10-25 13:11 | P.HPIM ---
History of Present Illness H&P Date: 10/25/19 Chief Complaint: Chest pain Mr. Antonio is a 66-year-old female with a past medical history of hypertension, hyperlipidemia, recent hospitalization for NSTEMI on 10/07, coming in with a chief complaint of chest pressure and heaviness. Patient states that he was just lying in his couch and started to aches. This chest heaviness that lasted for about 5 minutes. It was mostly substernal associated with some diaphoresis. Patient denies having any difficulty in breathing. He states that he took an aspirin and later on sublingual nitro which helped him with the pain. Patient denies having any lower extremity swelling. No orthopnea or PND. No fevers chills or rigors. No cough or palpitations. Patient denies having any recent history of travel. On his previous admission on 10/07 patient had a cardiac cath showing 30-35% narrowing in the circumflex system and the distal arteries. No evidence suggestive of any significant obstructive coronary artery disease. Left dominant system, normal filling pressures without any gradient across the aortic wall. He was suggested to continue with medical therapy and risk factor modification and discharged home. In the ED patient had serial troponins, the last troponin being 0.049 and EKG showed no significant ST or T-wave abnormalities. He is currently being monitored in the observation unit. He denies having any chest pain, difficulty in breathing and states that he wants to go home. Review of Systems REVIEW OF SYSTEMS: PSYCH: No anxiety or depression NEURO: No c/o weakness of the extremties, No facial droop, No speech abnormalities. VASCULAR: Peripheral nervous system within the normal limits no edema HEMATOLOGIC: No history of easy bleeding and bruising . No recent infections . RESPIRATORY: No cough, No SOB IMMUNE: No infections INTEGUMENT: no rashes OPHTHALMOLOGIC: No blurry vision and no eye discharge : No dysuria or hematuria CARDIAC: As per HPI MUSCULOSKELETAL : No Aches or pains in the joints or muscles. GI: No abdominal pain, Nausea or vomiting. No constipation or diarrhea. Past Medical History Past Medical History: Hyperlipidemia, Hypertension History of Any Multi-Drug Resistant Organisms: None Reported Past Surgical History: Orthopedic Surgery Additional Past Surgical History / Comment(s): NOSE/LIP Past Anesthesia/Blood Transfusion Reactions: No Reported Reaction Past Psychological History: No Psychological Hx Reported Smoking Status: Current some day smoker Past Alcohol Use History: Occasional Additional Past Alcohol Use History / Comment(s): HAS SMOKED ON AND OFF SINCE , ABOUT 6 CIGARETTES A DAY Past Drug Use History: None Reported - Past Family History Mother Family Medical History: No Reported History Medications and Allergies Home Medications Medication Instructions Recorded Confirmed Type Aspirin EC [Ecotrin Low Dose] 81 mg PO HS 10/08/19 10/25/19 History Ergocalciferol (Vitamin D2) 50,000 unit PO MO 10/08/19 10/25/19 History [Drisdol] Lisinopril-Hctz 20-25 mg 1 tab PO HS 10/08/19 10/25/19 History [Zestoretic 20-25] Rosuvastatin Calcium [Crestor] 40 mg PO HS 10/08/19 10/25/19 History Nitroglycerin Sl Tabs [Nitrostat] 0.4 mg SUBLINGUAL Q5M PRN #20 tab 10/09/19 10/25/19 Rx Ezetimibe [Zetia] 10 mg PO HS 10/25/19 10/25/19 History Metoprolol Tartrate [Lopressor] 25 mg PO BID@0600,2030 10/25/19 10/25/19 History Allergies Allergy/AdvReac Type Severity Reaction Status Date / Time No Known Allergies Allergy Verified 10/25/19 10:46 Physical Exam Vitals: Vital Signs Temp Pulse Pulse Resp BP BP Pulse Ox 10/25/19 07:48 97.9 F 52 L 14 125/78 95 10/25/19 02:39 58 L 18 10/25/19 02:19 97.7 F 59 L 18 111/72 98 10/25/19 02:18 95 10/25/19 02:01 97.8 F 56 L 16 116/72 96 10/25/19 01:01 61 16 136/77 96 10/25/19 00:01 62 18 120/75 95 10/24/19 23:14 98.1 F 68 16 140/78 97 Intake and Output 10/24/19 10/25/19 10/25/19 22:59 06:59 14:59 Other: Voiding Method Toilet Toilet # Voids 1 Weight 114.532 kg GEN. APPEARANCE: alert, in no apparent distress HEENT : No pallor. No icterus. No JVD. RESPIRATORY EXAM: Bilateral breath sounds are positive. No wheeze or crackles. CARDIOVASCULAR EXAM: S1-S2 heard. No chills sounds. GI/ABDOMINAL EXAM: Abdomen is soft. Nontender. Normal bowel sounds. No guarding or rigidity. EXTREMITIES EXAM: No edema NEUROLOGICAL EXAM: No focal neurological deficits PSYCHIATRIC EXAM: normal affect, anxious to go home SKIN EXAM: warm, dry, intact, normal color. Absent: rash Results CBC & Chem 7: 10/24/19 23:49 10/24/19 23:49 Labs: Abnormal Lab Results - Last 24 Hours (Table) 10/24/19 10/25/19 10/25/19 Range/Units 23:49 03:03 05:50 Glucose 106 H (74-99) mg/dL Troponin I 0.059 H* 0.049 H* (0.000-0.034) ng/mL Thrombosis Risk Factor Assmnt - Choose All That Apply Each Factor Represents 1 point: Acute [place] Thrombosis Risk Factor Assessment Total Risk Factor Score: 1 Thrombosis Risk Factor Assessment Level: Low Risk Assessment and Plan Assessment: ASSESSMENT Atypical chest pain Slightly elevated troponins Recent N STEMI Nicotine dependence Obesity with BMI of 34.2 Hypertension Hyperlipidemia PLAN: Patient had EKGs that are within normal limits. Initial troponin is 0.0- 3, and repeat is 0.059 and 0.049. Patient is chest pain-free now. He had a recent echocardiogram performed and revealed mildly impaired LV function was EF around 45%. Subsequently he underwent a coronary angiogram that revealed mild to moderate nonobstructive coronary artery disease. At that point maximize medical treatment was advised and the patient was discharged home. D-dimer from today is 0.32. Today cardiology Dr. Beckett has evaluated the patient and started him on Plavix and Imdur. Discussed the findings with the patient and his at bedside in detail. We'll monitor the patient for 24 hours. Further recommendations depending on the progress of the patient.
[2019-10-25] MEDS: METOPROLOL TARTRATE 25 MG TAB PO SCH (20:17)
[2019-10-25] MEDS ORDERED: ATORVASTATIN 80 MG TAB PO SCH (21:00)
[2019-10-25] MEDS ORDERED: ASPIRIN 81 MG PO SCH (21:00)
[2019-10-25] MEDS ORDERED: EZETIMIBE 10 MG TAB PO SCH (21:00)
[2019-10-25] MEDS ORDERED: LISINOPRIL-HCTZ 20-25 MG 1 EACH TAB PO SCH (21:00)
[2019-10-26] MEDS: METOPROLOL TARTRATE 25 MG TAB PO SCH (06:34)
[2019-10-26 07:59] VITALS: BP 117/74; PULSE 57; RESP 12; TEMP 97.5
[2019-10-26] MEDS: ISOSORBIDE MONONITRATE ER 30 MG TAB.ER.24H PO SCH (08:02)
[2019-10-26] MEDS: CLOPIDOGREL 75 MG TAB PO SCH (08:02)
[2019-10-26 08:21] LABS: Cholesterol 134 mg/dL (<200); HDL Cholesterol 50 mg/dL (40-60); LDL Cholesterol,Calculated 45 mg/dL (0-99); Triglycerides 194 mg/dL (<150)
[2019-10-26] MEDS ORDERED: ASPIRIN 325 MG TAB PO SCH (09:00)
--- NOTE | 2019-10-26 10:26 | P.DS ---
Providers Date of admission: 10/25/19 01:55 Expected date of discharge: 10/26/19 Attending physician: Haresh Zendejas Consults: 10/25/19 00:42 Consult Physician Urgent Consulting Provider: Stan Eason Reason/Comments: chest pain Do you want consulting provider notified?: Yes Primary care physician: [facility] Course: Mr. Antonio is a 66-year-old female with a past medical history of hypertension, hyperlipidemia, recent hospitalization for NSTEMI on 10/07, coming in with a chief complaint of chest pressure and heaviness. Patient states that he was just lying in his couch and started to aches. This chest heaviness that lasted for about 5 minutes. It was mostly substernal associated with some diaphoresis. Patient denies having any difficulty in breathing. He states that he took an aspirin and later on sublingual nitro which helped him with the pain. Patient denies having any lower extremity swelling. No orthopnea or PND. No fevers chills or rigors. No cough or palpitations. Patient denies having any recent history of travel. On his previous admission on 10/07 patient had a cardiac cath showing 30-35% narrowing in the circumflex system and the distal arteries. No evidence suggestive of any significant obstructive coronary artery disease. Left dominant system, normal filling pressures without any gradient across the aortic wall. He was suggested to continue with medical therapy and risk factor modification and discharged home. In the ED patient had serial troponins, the last troponin being 0.049 and EKG showed no significant ST or T-wave abnormalities. He was monitored in the observation unit.Patient had EKGs that are within normal limits. Initial troponin is 0.0-3, and repeat is 0.059 and 0.049. Patient is chest pain-free now. He had a recent echocardiogram performed and revealed mildly impaired LV function was EF around 45%. Subsequently he underwent a coronary angiogram that revealed mild to moderate nonobstructive coronary artery disease. At that point maximize medical treatment . Cardiology Dr. Beckett has evaluated the patient and started him on Plavix and Imdur. He is cleared for discharge by him today. DISCHARGE DIAGNOSIS Atypical chest pain Slightly elevated troponins Recent N STEMI Nicotine dependence Obesity with BMI of 34.2 Hypertension Hyperlipidemia Follow-up: Patient is advised to follow-up with cardiology Dr. Beckett in 1 week. Patient was also counseled extensively on smoking cessation. Plavix and Imdur has been sent to his pharmacy. More than 35 minutes spent towards the discharge of the patient. Patient Condition at Discharge: Fair Plan - Discharge Summary New Discharge Prescriptions: New Isosorbide Mononitrate ER [Imdur] 30 mg PO DAILY 30 Days #30 tab.er.24h Clopidogrel [Plavix] 75 mg PO DAILY 30 Days #30 tab Continue Rosuvastatin Calcium [Crestor] 40 mg PO HS Lisinopril-Hctz 20-25 mg [Zestoretic 20-25] 1 tab PO HS Aspirin EC [Ecotrin Low Dose] 81 mg PO HS Ergocalciferol (Vitamin D2) [Drisdol] 50,000 unit PO MO Nitroglycerin Sl Tabs [Nitrostat] 0.4 mg SUBLINGUAL Q5M PRN #20 tab PRN Reason: Chest Pain Metoprolol Tartrate [Lopressor] 25 mg PO BID@0600,2029 Ezetimibe [Zetia] 10 mg PO HS Discharge Medication List Aspirin EC [Ecotrin Low Dose] 81 mg PO HS 10/08/19 [History] Ergocalciferol (Vitamin D2) [Drisdol] 50,000 unit PO MO 10/08/19 [History] Lisinopril-Hctz 20-25 mg [Zestoretic 20-25] 1 tab PO HS 10/08/19 [History] Rosuvastatin Calcium [Crestor] 40 mg PO HS 10/08/19 [History] Nitroglycerin Sl Tabs [Nitrostat] 0.4 mg SUBLINGUAL Q5M PRN #20 tab 10/09/19 [Rx] Ezetimibe [Zetia] 10 mg PO HS 10/25/19 [History] Metoprolol Tartrate [Lopressor] 25 mg PO BID@0600,2030 10/25/19 [History] Clopidogrel [Plavix] 75 mg PO DAILY 30 Days #30 tab 10/26/19 [Rx] Isosorbide Mononitrate ER [Imdur] 30 mg PO DAILY 30 Days #30 tab.er.24h 10/26/19 [Rx] Follow up Appointment(s)/Referral(s): Usman Zhao MD [STAFF PHYSICIAN] - 1 Week Jim Huynh DO [Primary Care Provider] - 1-2 days Patient Instructions/Handouts: Chest Pain (GEN) Discharge Disposition: HOME SELF-CARE
--- NOTE | 2019-10-26 10:38 | P.PN ---
Subjective Progress Note Date: 10/26/19 Principal diagnosis: Chest pain This is a pleasant 59-year-old gentleman with significant history of smoking presented to the emergency department complaining of chest discomfort. He just was discharged from the hospital after he was admitted with a chest discomfort and ruled in for acute coronary syndrome. At that point an echocardiogram was performed and revealed mildly impaired LV function was EF around 45%. Subsequently he underwent a coronary angiogram by Dr. Rasmussen and that revealed mild to moderate nonobstructive coronary artery disease. At that point maximize medical treatment was advised and the patient was discharged home. He was in his usual state of felt to yesterday when he was at home laying on the couch and subsequently started experiencing discomfort in the chest without any radiation to the arms or neck or shoulders and without any associated symptoms of shortness of breath, dizziness, heart racing, or syncope. He did have some sweating with a chest discomfort. The discomfort lasted only for a few minutes but since then he has been chest pain-free. The EKG showed sinus rhythm without any significant ST or T-wave abnormalities. The cardiac enzymes were checked and came in to be slightly abnormal. The patient stated that he stop smoking since he was admitted to the hospital last time. Currently he is under a lot of stress. The patient was seen today October [id number]. He remains a symptomatic from a cardiovascular standpoint overview. Yesterday I added Plavix to the current medical regimen and also I added oral nitrates. He stated that he has been up and around and he is is symptomatically and would like to go home. Objective - Vital Signs Vital signs: Vital Signs Temp 97.5 F L 10/26/19 07:57 Pulse 57 L 10/26/19 07:57 Resp 12 10/26/19 07:57 BP 117/74 10/26/19 07:57 Pulse Ox 94 L 10/26/19 07:57 Intake & Output 10/25/19 10/26/19 10/26/19 18:59 06:59 18:59 Intake Total 240 900 Balance 240 900 Intake: Oral 240 900 Other: Voiding Method Toilet Toilet Toilet # Voids 1 1 - Constitutional General appearance: Present: no acute distress - Respiratory Respiratory: bilateral: CTA - Cardiovascular Rhythm: regular Heart sounds: normal: S1, S2 - Labs CBC & Chem 7: 10/24/19 23:49 10/24/19 23:49 Labs: Abnormal Lab Results - Last 24 Hours (Table) 10/26/19 Range/Units 07:26 Triglycerides 194 H (<150) mg/dL Assessment and Plan Assessment: Assessment #1 chest discomfort #2 significant history of smoking Plan #1 continue the current medical regimen including dual antiplatelet therapy as well as oral nitrate #2 the patient would like to go home
[2019-10-27] MEDS ORDERED: ERGOCALCIFEROL 50,000 UNIT CAP PO SCH (09:00)
== END 2019-10-26 10:56 | disposition home or self-care (01) ==
LOC: EC 23:12 → 3NCARDOBS 10-25 01:55
PROVIDERS: ADMIT Hospitalist; ATTEND Hospitalist
DX: I25.10 Atherosclerotic heart disease of native coronary artery without angina pectoris (principal); I10 Essential (primary) hypertension; R07.89 Other chest pain; I25.2 Old myocardial infarction; R07.2 Precordial pain; I49.3 Ventricular premature depolarization; I44.0 Atrioventricular block, first degree; R79.89 Other specified abnormal findings of blood chemistry; E78.5 Hyperlipidemia, unspecified; F17.210 Nicotine dependence, cigarettes, uncomplicated; Z98.890 Other specified postprocedural states; Z79.82 Long term (current) use of aspirin; Z79.899 Other long term (current) drug therapy; E66.9 Obesity, unspecified; Z68.34 Body mass index [BMI] 34.0-34.9, adult
CPT/HCPCS: 93005 ×2; 96361 ×2; 96360; 99285; 36415; 85379; 83880; 80061; 80053; 83735; 84484 ×3; 85025; 85610; 85730; 71046; G0378 ×2

== ENCOUNTER → 2020-05-21 | Outpatient (CLI) | payer BC ==
--- NOTE | 2020-05-21 10:19 | CT ---
EXAMINATION TYPE: CT chest w con DATE OF EXAM: 05/21/2020 COMPARISON: CTA chest October 09, 2019 HISTORY: Solitary pulmonary nodule CT DLP: 680 mGycm. Automated Exposure Control for Dose Reduction was Utilized. TECHNIQUE: CT scan of the thorax is performed following with IV Contrast, patient injected with 100 ml mL of Isovue 300. FINDINGS: LUNGS: Redemonstration of 5 x 4 mm posterior left upper lobe nodule image 13 unchanged from prior no new or enlarging greater than 4 mm pulmonary nodules bilaterally. No new groundglass opacity or focu s of consolidation. There is no pleural effusion or pneumothorax seen bilaterally. The tracheobronch ial tree is patent. MEDIASTINUM: There are no greater than 1 cm hilar or mediastinal lymph nodes. No cardiomegaly or pe ricardial effusion is seen. OTHER: A few scattered simple-appearing thin-walled cysts throughout the liver and left kidney redemo nstrated. Single calcification posterior right hepatic lobe axial image 64 redemonstrated. New wedge- shaped area of enhancement suspected transient hepatic attenuation difference posterior right hepatic lobe echo image 57 noted. Slight scoliotic curvature with mild multilevel spurring redemonstrated. IMPRESSION: Stable 5 mm posterior left upper lobe nodule. No new or enlarging nodules.
== END ==
LOC: RADCTMAIN 08:46
PROVIDERS: ATTEND Family Medicine
DX: R91.1 Solitary pulmonary nodule (principal)
CPT/HCPCS: 71260; Q9967

== ENCOUNTER → 2023-04-06 | Outpatient (CLI) | payer BC ==
--- NOTE | 2023-04-07 12:06 | CA ---
Transthoracic Echo Report Name: Luke Antonio Age: 62 Gender: M : 1960 Exam Date: 04/06/2023 11:24 Exam Location: [facility] Ht (in): 72 Wt (lb): 240 Ordering Physician: Jim Huynh DO Attending/Referring Phys: Nilsa Samayoa PAC [employer] Anika Goldberg [facility] Procedure CPT: Indications: I2510 ATHSCL HEART DISEASE OF [place] Cardiac Hx: Technical Quality: Fair Contrast 1: Total Dose (mL): Contrast 2: Total Dose (mL): MEASUREMENTS (Male / Female) Normal Values 2D ECHO LV Diastolic Diameter PLAX 5.1 cm 4.2 - 5.9 / 3.9 - 5.3 cm LV Systolic Diameter PLAX 3.7 cm IVS Diastolic Thickness 0.9 cm 0.6 - 1.0 / 0.6 - 0.9 cm LVPW Diastolic Thickness 0.9 cm 0.6 - 1.0 / 0.6 - 0.9 cm LV Relative Wall Thickness 0.4 LVOT Diameter 2.1 cm Ascending Aorta Diameter 3.9 cm M-MODE Aortic Root Diameter MM 3.0 cm LA Systolic Diameter MM 5.1 cm LA Ao Ratio MM 1.7 AV Cusp Separation MM 2.6 cm DOPPLER AV Peak Velocity 125.3 cm/s AV Peak Gradient 6.3 mmHg AV Mean Velocity 89.0 cm/s AV Mean Gradient 3.5 mmHg AV Velocity Time Integral 24.6 cm AI Peak Velocity 347.1 cm/s AI Peak Gradient 48.2 mmHg AI Pressure Half Time 772.4 ms LVOT Peak Velocity 96.6 cm/s LVOT Peak Gradient 3.7 mmHg LVOT Velocity Time Integral 18.6 cm LVOT Stroke Volume 64.9 cm??? LVOT Stroke Volume Index 28.2 ml/m??? LVOT Cardiac Index 1959.7 cm???/min???m??? AV Area Cont Eq vti 2.6 cm??? AV Area Cont Eq pk 2.7 cm??? Mitral E Point Velocity 42.7 cm/s Mitral A Point Velocity 55.2 cm/s Mitral E to A Ratio 0.8 MV Deceleration Time 291.3 ms LV E' Lateral Velocity 10.7 cm/s Mitral E to LV E' Lateral Ratio 4.0 LV E' Septal Velocity 8.1 cm/s Mitral E to LV E' Septal Ratio 5.3 TR Peak Velocity 198.8 cm/s TR Peak Gradient 15.8 mmHg Right Atrial Pressure 3.0 mmHg Pulmonary Artery Systolic Pressu 18.8 mmHg Right Ventricular Systolic Press 18.8 mmHg FINDINGS Left Ventricle Left ventricular wall thickness normal. Left ventricular cavity size normal. Normal left ventricular systolic function with no obvious regional wall motion abnormalities. Left ventricular ejection fraction is estimated at 50-55%. Right Ventricle Moderate right ventricular dilatation. Right Atrium Moderate right atrial dilatation. Left Atrium Mild left atrial dilatation. Mitral Valve Structurally normal mitral valve. Trace mitral regurgitation. Aortic Valve Trileaflet aortic valve. Trace aortic regurgitation. Tricuspid Valve Structurally normal tricuspid valve. Trace tricuspid regurgitation. Pulmonic Valve Pulmonic valve not well visualized. Pericardium Minimal pericardial effusion (normal variant). Aorta Normal size aortic root and mildly dilated proximal ascending aorta. CONCLUSIONS Left ventricular ejection fraction is estimated at 50-55%. No obvious regional wall motion abnormalities. Moderate biatrial dilatation No significant valvular dysfunction Previewed by: Dr Wily Burton (Electronically Signed) Final Date: 07 April 2023 12:05
== END | disposition home or self-care (01) ==
LOC: RADECHMAIN 11:11
PROVIDERS: ATTEND Family Medicine
DX: I51.7 Cardiomegaly (principal); I25.10 Atherosclerotic heart disease of native coronary artery without angina pectoris; I10 Essential (primary) hypertension
CPT/HCPCS: 93306

== ENCOUNTER → 2024-04-07 | Outpatient (CLI) | payer BC ==
--- NOTE | 2024-04-17 18:09 | P.HOLTER ---
72 HOUR HOLTER MONITOR : INDICATION: Shortness of breath R06.02. Palpitations START DATE: 04/12/2024 END DATE: 04/15/2024 Patient was moitored for 3 days FINDINGS: Max HR: 176 BPM Min HR: 45 BPM Average HR: 70 BPM Supra-Ventricular ectopic burden: Less than 1% Ventricular ectopic burden: 17.6% There were no signficant atrial fibrillation, atrial flutter, or sustained ventricular tachycardia episodes. There were 143 episodes of ventricular tachycardia longest being 4 beats. There were few short atrial tachycardias. There were no high-grade AV blocks There were no significant pauses greater than 2 seconds. Patient reported symptoms corresponded to normal sinus rhythm. Average QTc 432 ms CONCLUSION: Significant PVC burden. Please correlate clinically. Wily Burton MD, FACC, RPVI Thank you for allowing [facility] to participate in this patient's care. Feel free to reach out in case of any followup questions.
== END | disposition home or self-care (01) ==
LOC: RADECHMAIN 07:49
PROVIDERS: ATTEND Family Medicine
DX: I25.10 Atherosclerotic heart disease of native coronary artery without angina pectoris (principal); I49.3 Ventricular premature depolarization; I10 Essential (primary) hypertension; E78.2 Mixed hyperlipidemia; R06.02 Shortness of breath; R94.31 Abnormal electrocardiogram [ECG] [EKG]
CPT/HCPCS: 93225

== ENCOUNTER 2024-07-07 10:41 | Day surgery (SDC) | payer BC ==
[2024-07-02 16:17] VITALS: BMI 32.5
[~2024-07-07 10:41] MED LIST: ALPRAZolam 0.25 MG TAB PO PRN; ALPRAZolam 0.5 MG TAB PO PRN; NITROGLYCERIN SL TABS 0.4 MG TAB SUBLINGUAL PRN
[2024-07-07 11:13] VITALS: RESP 16; TEMP 97.8
[2024-07-07] MEDS: SODIUM CHLORIDE 0.9% 1,000 ML in EMPTY BAG 1 BAG IV SCH (11:15)
[2024-07-07] MEDS: ASPIRIN 325 MG TAB PO STA (11:16)
[2024-07-07] MEDS: IV FLUID CONTINUATION 1,000 ML IV ONE (11:16)
[2024-07-07 11:21] LABS: Basophils # (A) 0.04 10*3/uL (0.00-0.10); Basophils % (A) 0.6 %; Eosinophils # (A) 0.22 10*3/uL (0.04-0.35); Eosinophils % (A) 3.1 %; HCT 47.7 % (39.6-50.0); HGB 16.3 g/dL (13.0-17.0); Lymphocytes # (A) 2.15 10*3/uL (0.90-5.00); Lymphocytes % (A) 30.3 %; MCH 30.7 pg (27.0-32.0); MCHC 34.2 g/dL (32.0-37.0); MCV 89.8 fL (80.0-97.0); Mean Platelet Volume 9.4 fL (9.5-12.2); Monocytes # (A) 0.59 10*3/uL (0.20-1.00); Monocytes % (A) 8.3 %; Neutrophils # (A) 4.08 10*3/uL (1.80-7.70); Neutrophils % (A) 57.6 %; Platelet Count 273 10*3/uL (140-440); RBC 5.31 10*6/uL (4.40-5.60); RDW 12.9 % (11.5-14.5); WBC 7.09 10*3/uL (4.50-10.00)
[2024-07-07 11:27] LABS: African American GFR (CKD) >90 (>60 ml/min/1.73 sqM); Anion Gap 9 mmol/L; Blood Urea Nitrogen 14 mg/dL (9-20); Calcium 9.6 mg/dL (8.4-10.2); Carbon Dioxide 31 mmol/L (22-30); Chloride 98 mmol/L (98-107); Glucose 102 mg/dL (74-99); Non-African American GFR(CKD) >90 (>60 ml/min/1.73 sqM); Potassium 3.8 mmol/L (3.5-5.1); Sodium 138 mmol/L (137-145)
[2024-07-07] MEDS: MIDAZOLAM 2 MG/2 ML VIAL IVP ONE (12:01)
[2024-07-07] MEDS: HEPARIN SODIUM,PORCINE (1 ML) 2,500 UNIT in SODIUM CHLORIDE 0.9% 250 ML IRRIGATION PRN (12:01)
[2024-07-07] MEDS: HEPARIN SODIUM,PORCINE 10,000 UNIT in SODIUM CHLORIDE 0.9% 1,000 ML IRRIGATION PRN (12:01)
[2024-07-07] MEDS: fentaNYL (PF) 50 MCG/ML 2 ML AMP IVP ONE (12:02)
[2024-07-07] MEDS: LIDOCAINE 1% INJ 10MG/ML (20 ML MDV) SQ ONE (12:03)
[2024-07-07] MEDS: VERAPAMIL SYRINGE (5 MG/10 ML) INTRAARTER ONE (12:05)
[2024-07-07] MEDS: HEPARIN SODIUM 1,000 UN/ML (10ML VL) IV ONE (12:09)
[2024-07-07] MEDS: IOPAMIDOL-370 100ML BTL INJ ONE (12:20)
--- NOTE | 2024-07-07 12:26 | P.CARDCATH ---
Description of Procedure: PROCEDURES PERFORMED: Left heart catheterization, bilateral coronary angiography, ultrasound guided arterial access INDICATION: Abnormal stress test, nonsustained ventricular tachycardia CONSENT:I have discussed the risks, benefits and alternative therapies for the above-mentioned procedure and for both sedation/analgesia as well as necessary blood product administration, if indicated, as they pertain to this patient. The patient has indicated understanding and acceptance of the risks and procedures discussed. PROCEDURE: After the risks, benefits and alternatives of the above mentioned procedure explained in detail with the patient, informed consent was obtained. Patient was taken to the catheterization lab and prepped and draped in usual fashion. Ultrasound guidance was used to assess for arterial access. 1% lidocaine was used to anesthetize the right radial artery. A 6-Telugu sheath was placed in the right radial artery using modified Seldinger technique and ultrasound guidance. Left coronary angiography was performed with a 5-Telugu JL 3.5 catheter and right coronary angiography was performed with a 5-Telugu FR5 catheter in various views. A 5-Telugu AR2 catheter was inserted into the left ventricle and pressure measurements were obtained. The right radial sheath was removed and a TR band was placed with hemostasis achieved. The patient tolerated the procedure well. Patient was transported back to the post catheterization holding area in stable condition. Conscious Sedation: Patient was monitored under the direct supervision of myself for conscious sedation using Versed and fentanyl for a total duration of 17 minutes HEMODYNAMICS: Aorta: 116/74 LV: 126/13, LVEDP 21 SELECTIVE CORONARY ARTERIOGRAPHY: LEFT MAIN: The left main is a large caliber vessel which bifurcates into the LAD and circumflex. There is no significant stenosis. LEFT ANTERIOR DESCENDING CORONARY ARTERY: LAD is a large caliber vessel which wraps around to the apex. There are mild luminal irregularities with proximal and mid LAD 10 to 20% stenosis. Diagonal 1 is moderate caliber with a proximal 20 to 30% stenosis. There is CLAUDE II flow noted in LAD and circumflex. LEFT CIRCUMFLEX CORONARY ARTERY: Left circumflex is a large caliber vessel with mild luminal irregularities. The circumflex gives off the PDA and is the dominant vessel. RIGHT CORONARY ARTERY: The right coronary artery is a moderate caliber vessel which gives off a marginal branch and is nondominant. There is some CLAUDE II flow mild luminal irregularities with proximal RCA 30% stenosis. FINAL IMPRESSION: 1. CAD as described above including 10 to 20% LAD, diagonal 1 20 to 30%, circumflex 10% and RCA 30% stenosis. 2. Mildly elevated left sided filling pressures 3. Some CLAUDE II flow noted and may be some component of microvascular disease. PLAN: 1. Aggressive risk factor modification per most recent ACC/AHA guidelines. 2. Continue with medical therapy. If he is having more angina type symptoms may consider antianginals with possibility of microvascular disease.
[2024-07-07 17:20] VITALS: BP 123/83; PULSE 56
== END 2024-07-07 15:25 | disposition home or self-care (01) ==
LOC: CATHCVL 10:41
PROVIDERS: ATTEND Internal Medicine
DX: I25.10 Atherosclerotic heart disease of native coronary artery without angina pectoris (principal); I47.20 Ventricular tachycardia, unspecified; I10 Essential (primary) hypertension; E78.5 Hyperlipidemia, unspecified; I25.2 Old myocardial infarction; Z87.891 Personal history of nicotine dependence
CPT/HCPCS: 80048; 85025; 93458; J2250; J1644 ×3; J2003; J3010; Q9967